=== PATIENT | female | born 1960 | race Caucasian/White ===

== ENCOUNTER → 2016-07-23 | Outpatient (CLI) | payer BC ==
--- NOTE | 2016-07-23 17:54 | MA ---
Screening Digital Mammogram Clinical Indications: Routine screening. Technique: Standard cephalocaudal and mediolateral oblique projections are obtained. This examinati on was processed by the [employer] computer aided detection system. Comparison: June 2015 and 2014, May 2013 and 2011 Breast density: C; The breast tissue is heterogeneously dense, which could obscure detection of small masses. Findings: CAD was reviewed. Developing density upper right breast anterior to the lower third of the right pectoral muscle. The remainder of the right and left breast are stable. Impression: Developing density upper deep right breast. BI-RADS 0: Needs additional imaging evaluation, right breast. . Recommendation: True lateral view and spot compression MLO view. If persistent, attempt to localize in the orthogonal plane mammographically, and then proceed to ultrasound for further characterization and localization purposes.. [facility] will send a result letter to the patient. Negative mammography should not preclude additional workup of a clinically suspicious finding. The patient's information is entered into a reminder system with a target due date for her next mammo gram.
== END ==
LOC: BRMIMAGING 12:53
DX: Z12.31 Encounter for screening mammogram for malignant neoplasm of breast (principal)
CPT/HCPCS: G0202

== ENCOUNTER → 2016-08-08 | Outpatient (CLI) | payer BC ==
--- NOTE | 2016-08-08 10:08 | MA ---
Right Diagnostic Digital Mammogram with iCAD Clinical Indications: Asymmetric density on recent screening mammogram. Technique: Digital spot compression mediolateral oblique and true lateral views. This examination wa s processed by the iCAD computer-aided detection system. Comparison: Recent mammogram. June 2016, 2015, 2014, 2012, 2011 Breast Density: C, 50-75%. Findings: Previous asymmetric density identified is no longer detected on the additional views or french e lateral views. This is consistent with normal overlapping breast parenchyma. Computer-aided detecti on (iCAD) is negative. Impression: ACR BI-RADS 2: Benign right mammogram. Recommendation: Annual mammograms with next screening mammograms in June 2017. [facility] will send a result letter to the patient. Negative mammography should not preclude additional workup of a clinically suspicious finding. Findings and recommendations have been discussed with the patient who agrees with the plan. The patient's information is entered into a reminder system with a target due date for her next mammo gram.
== END ==
LOC: BRMIMAGING 09:13
DX: R92.2 Inconclusive mammogram (principal)
CPT/HCPCS: G0206

== ENCOUNTER → 2017-07-24 | Outpatient (CLI) | payer BC | LOC: BRMIMAGING 10:48 | PROVIDERS: ATTEND Radiology Diagnostic Radiology | DX: Z12.31 Encounter for screening mammogram for malignant neoplasm of breast (principal) ==

== ENCOUNTER → 2018-07-27 | Outpatient (CLI) | payer BC | LOC: BRMIMAGING 11:04 | DX: Z12.31 Encounter for screening mammogram for malignant neoplasm of breast (principal) ==